=== PATIENT | female | born 1980 | race Hispanic/Latino ===

== ENCOUNTER 2018-04-24 10:58 | Inpatient (IN) | payer MEDICARE, OTHER ==
[~2018-04-24] VITALS: Ht 165.1 cm; Wt 74.8 kg
[~2018-04-24 10:58] MED LIST: CIPRO500 MG PO
[2018-04-24] MEDS ORDERED: IBUPROFEN 600 MG TAB PO STA ×2 (11:27→21:51)
[2018-04-24] MEDS ORDERED: SODIUM CHLORIDE 0.9% 1000ML 1,000 ML IV STA ×2 (11:27→14:17)
[2018-04-24 12:25] LABS: BASOPHILS % 0.3 % (0.0-1.0); EOSINOPHILS % 0.1 % (0.0-6.0); HEMATOCRIT 39.9 % (34.2-44.1); HEMOGLOBIN 12.7 g/dL (12.0-16.0); LYMPHOCYTES # (AUTO) 0.9 (1.0-3.2); LYMPHOCYTES % 7.7 % (18.0-39.1); MEAN CORPUSCULAR HEMOGLOBIN 25.6 pg (28-32); MEAN CORPUSCULAR HGB CONC 31.8 g/dL (31-35); MEAN CORPUSCULAR VOLUME 80.4 fL (81-99); MONOCYTES # (AUTO) 0.9 (0.2-0.8); MONOCYTES % 7.9 % (4.4-11.3); NEUTROPHILS # (AUTO) 9.6 (2.1-6.9); NEUTROPHILS % 83.4 % (38.7-80.0); PLATELET COUNT 270 x10e3/uL (140-360); RED BLOOD COUNT 4.96 x10e6/uL (3.6-5.1); RED CELL DISTRIBUTION WIDTH 15.4 % (11.7-14.4)
[2018-04-24 12:39] LABS: CLARITY,URINE TURBID (CLEAR); COLOR,URINE YELLOW (YELLOW)
[2018-04-24 12:40] LABS: LEUKOCYTE ESTERASE ,URINE 2+ (NEGATIVE); NITRITE,URINE POSITIVE (NEGATIVE); PROTEIN,URINE DIPSTICK 1+ (NEGATIVE)
[2018-04-24 12:41] LABS: BILIRUBIN,URINE NEGATIVE (NEGATIVE); KETONES,URINE NEGATIVE (NEGATIVE); URINE UROBILINOGEN 0.2 mg/dL (0.2 - 1)
[2018-04-24 12:42] LABS: BACTERIA,URINE MANY /HPF; EPITHELIAL CELLS,URINE MANY /LPF; WBC,URINE (MAN) >50 /HPF (0-5)
[2018-04-24 12:46] LABS: ALANINE AMINOTRANSFERASE 19 IU/L (0-55); ALBUMIN 3.3 g/dL (3.5-5.0); ALBUMIN/GLOBULIN RATIO 0.8 (0.8-2.0); ALKALINE PHOSPHATASE 126 IU/L (40-150); ANION GAP 10.7 mmol/L (8-16); BLOOD UREA NITROGEN 13 mg/dL (7-26); BUN/CREATININE RATIO 15 (6-25); CALCIUM 8.7 mg/dL (8.4-10.2); CARBON DIOXIDE 26 mmol/L (22-29); CHLORIDE 105 mmol/L (98-107); CREATININE, SERUM 0.86 mg/dL (0.57-1.11); EST GLOMERULAR FILTRATION RATE > 60 ML/MIN (60-); GLUCOSE 101 mg/dL (74-118); POTASSIUM 3.7 mmol/L (3.5-5.1); SODIUM 138 mmol/L (136-145)
[2018-04-24 12:56] LABS: INFLUENZAE A&B ANTIGEN (RAPID) NEGATIVE (NEGATIVE); STREPTOCOCCUS GRP A ANTIGEN NEGATIVE (NEGATIVE)
[2018-04-24] MEDS ORDERED: CEFTRIAXONE SOD 1 GM/NS 50 ML 50 ML IV ONE (13:00)
--- NOTE | 2018-04-24 14:32 | Diagnostic Imaging Report ---
EXAM: CHEST 2 VIEWS, PA and lateral DATE: 04/24/2018 Time stamp on exam: 12:17 PM INDICATION: Weakness COMPARISON: None FINDINGS: LINES/TUBES: None LUNGS: No consolidations or edema. PLEURA: No effusions or pneumothorax. HEART AND MEDIASTINUM: Normal size and contour. BONES AND SOFT TISSUES: No acute findings. Surgical clips are noted beneath the diaphragm. IMPRESSION: No acute thoracic abnormality. Signed by: Dr. Donald Crum DO on 04/24/2018 1:31 PM
--- OUTSIDE RECORDS SUMMARY | 2018-04-24 14:44 | XMS REPORT ---
Author [facility] Address Unknown Phone Unavailable Care Team Providers Care Supervisor Dried Yeast Name Role Phone Maya VELEZ Unavailable Unavailable Problems This patient has no known problems. Allergies, Adverse Reactions, Alerts This patient has no known allergies or adverse reactions. Medications This patient has no known medications. Results Test Description Test Time Test Comments Text Results Atomic Results Result Comments CHEST 2 VIEWS 2018-04-24 13:30:00 [place] [address] Patient Name: BEAR MCLAIN MR #: [id number] : 1980 Age/Sex: 37/F Req #: [id number] Adm Physician: Ordered by: TIFFANIE SERNA [employer] Report #: [id number] Location: ER Room/Bed: Procedure: [id number] DX/CHEST 2 VIEWS Exam Date: 04/24/18 Exam Time: 1220 REPORT STATUS: Signed EXAM: CHEST 2 VIEWS, PA and lateral DATE: 04/24/2018 Time stamp on exam: 12:17 PM INDICATION: Weakness COMPARISON: None FINDINGS: LINES/TUBES: None LUNGS: No consolidations or edema. PLEURA: No effusions or pneumothorax. HEART AND MEDIASTINUM: Normal size and contour. BONES AND SOFT TISSUES: No acute findings. Surgical clips are noted beneath the diaphragm. IMPRESSION: No acute thoracic abnormality. Signed by: Dr. Toribio Crum DO on 04/24/2018 1:31 PM Dictated By: TORIBIO CRUM DO 1331 Transcribed By: ERIN on 04/24/18 1331 COPY TO: TIFFANIE SERNA NP
[2018-04-24] MEDS: SODIUM CHLORIDE 0.9% 1000ML 1,000 ML IV SCH ×2 (15:30→19:32)
[2018-04-24 16:20] LABS: BILIRUBIN,URINE NEGATIVE (NEGATIVE); CLARITY,URINE HAZY (CLEAR); COLOR,URINE YELLOW (YELLOW); KETONES,URINE NEGATIVE (NEGATIVE); LEUKOCYTE ESTERASE ,URINE TRACE (NEGATIVE); NITRITE,URINE POSITIVE (NEGATIVE); PROTEIN,URINE DIPSTICK 1+ (NEGATIVE); URINE UROBILINOGEN 0.2 mg/dL (0.2 - 1)
[2018-04-24 16:32] LABS: BACTERIA,URINE MANY /HPF; EPITHELIAL CELLS,URINE FEW /LPF; TRANSITIONAL EPI CELLS,URINE MANY
--- NOTE | 2018-04-24 16:58 | Diagnostic Imaging Report ---
EXAM: CT Abdomen and Pelvis WITHOUT contrast INDICATION: Fever. Weakness. Upper back pain. May have UTI or stone. History of left kidney removed in 2002. COMPARISON: None. TECHNIQUE: Abdomen and pelvis were scanned utilizing a multidetector helical scanner from the lung base to the pubic symphysis without administration of IV contrast. Absence of intravenous contrast decreases sensitivity for detection of focal lesions and vascular pathology. Coronal and sagittal reformations were obtained. Routine protocol was performed. IV CONTRAST: None ORAL CONTRAST: Water COMPLICATIONS: None RADIATION DOSE: Total DLP: 618.70 mGy*cm Estimated effective dose: (DLP x 0.015 x size factor) mSv CTDIvol has been reviewed. It is below the limits set by the Radiation Protocol Committee (RPC). Dose modulation, iterative reconstruction, and/or weight based adjustment of the mA/kV was utilized to reduce the radiation dose to as low as reasonably achievable. FINDINGS: LINES and TUBES: None. LOWER THORAX: There is bibasilar atelectasis. HEPATOBILIARY: The liver is diffuse hypodense compared to the spleen, consistent with diffuse hepatic diffuse hepatic steatosis. No focal hepatic lesions. No biliary ductal dilation. GALLBLADDER: No radio-opaque stones or sludge. No wall thickening. SPLEEN: No splenomegaly. PANCREAS: No focal masses or ductal dilatation. ADRENALS: No adrenal nodules KIDNEYS/URETERS: Left nephrectomy. No focal mass in the left nephrectomy bed. However, there is a 3.3 x 4.8 cm indeterminate soft tissue density at the tail of the pancreas (series 3, image 45). Compensatory hypertrophy of the right kidney. Mild nonspecific perinephric fat stranding. Cystic lesions: 1. 2.2 cm lobulated cystic lesion in the superior posterior right kidney (series 3, 62). 2. 2.5 cm ill-defined hypodensity in the medial interpolar region of the right kidney (image 72). Stones: Numerous stones greater than 15 in the right kidney. Largest in the lower pole measures 0.6 cm. No hydronephrosis. GI TRACT: No abnormal distention, wall thickening, or evidence of bowel obstruction. Appendix is normal. PELVIC ORGANS/BLADDER: The uterus is absent. Bilateral ovaries are not well-visualized. LYMPH NODES: No lymphadenopathy. VESSELS: Unremarkable. PERITONEUM / RETROPERITONEUM: No free air or fluid. BONES: Unremarkable. SOFT TISSUES: Midline laparotomy scar and transverse Pfannenstiel incision. IMPRESSION: 1. Left nephrectomy. No focal mass in the nephrectomy bed. However, there is a 3.3 x 4.8 cm indeterminate soft tissue density at the tail of the pancreas. Recommend CT or MR abdomen without and with contrast liver mass protocol for further characterization. 2. Compensatory hypertrophy of the right kidney with a numerous nonobstructing right renal stones. Mild nonspecific perinephric fat stranding around the right kidney. Correlate with appropriate laboratory values. 3. Multiple nonspecific right renal hypodensities, possibly cysts. However, these were incompletely characterized secondary to lack of IV contrast. 4. Diffuse hepatic steatosis. Signed by: Dr. Johnathon Leyva M.D. on 04/24/2018 4:54 PM
[2018-04-24] MEDS ORDERED: KETOROLAC TROMETHAMINE 30 MG/ML VIAL IV ONE (19:00)
[2018-04-25] VITALS (8 sets, daily range): BP systolic 107–161; BP diastolic 78–90
--- NOTE | 2018-04-25 | NUR ---
Received patient from EVENING NURSE, patient is currently with temp. of 101.1 and pain of 4 at the back as per patient pain is from hard bed, patient given extra beddings on the bed and and received tylenol ordered by md. patient was stable and temperature reduced to 99.1 f, patient also received ativan for anxiety.
[2018-04-25] MEDS ORDERED: ACETAMINOPHEN 1000 MG/100 ML IV STA (00:06)
[2018-04-25] MEDS ORDERED: LORAZEPAM INJ 2 MG/ML VIAL IV ONE (00:15)
[2018-04-25] MEDS: SODIUM CHLORIDE 0.9% 1000ML 1,000 ML IV SCH ×3 (00:44→22:18)
--- NOTE | 2018-04-25 07:21 | NUR ---
Endorsed to next shift for continuity of care.
--- NOTE | 2018-04-25 10:13 | NUR ---
Patient assisted to bathroom, unable to void, on dialysis twice per week per patient, running Afib with tachycardia on exertion and attending notified, had metoprolol this morning. Addendum: 04/25/18 at 1016 by Brenda Baldwin RN WRONG CHART
--- NOTE | 2018-04-25 10:52 | NUR ---
Patient alert and responsive, no resp distress, denies any pains, afebrile this morning, Temp- 97.5, rest of VSS, OOB and ambulates to the bathroom, will monitor.
--- NOTE | 2018-04-25 12:44 | NUR ---
The pt. arrived to the unit via w/c from ER in stable condition. There is iv fluids but not connected to the pt. She reports no pain or discomfort at this time. There are no wounds and the pt. reports last b m 2 days ago. There are no home med to reconcile. She reports that she would like the flu and pneumonia vaccine. The pt. i resting quietly in bed post adm process completed.
--- NOTE | 2018-04-25 13:05 | NUR ---
Report given to nurse on the floor by charge nurse and patient has been transferred.
[2018-04-25] MEDS ORDERED: ACETAMINOPHEN 325 MG TAB PO PRN (14:15)
[2018-04-25] MEDS: CEFTRIAXONE SOD 1 GM/NS 50 ML 50 ML IV SCH (14:30)
--- NOTE | 2018-04-25 16:00 | NUR ---
The pt. c/o the iv abx burning post completion and dr was notified.
--- NOTE | 2018-04-25 16:30 | NUR ---
I spoke with Dr. Osborne and a midline was ordered. The pt. has been consented and is waiting for the midline and the Left EG infiltrated.
--- NOTE | 2018-04-25 22:17 | History and Physical ---
HISTORY OF PRESENT ILLNESS: The patient is a 37-year-old female, who has a past medical history positive for left nephrectomy due to a infection. The patient came here to the hospital complaining of fever and burning on urination. She was found to have UTI. She was found to have right-sided kidney stones. She was started on IV antibiotic and IV fluids. REVIEW OF SYSTEMS: CARDIOVASCULAR: No chest pain or palpitation. RESPIRATORY: No shortness of breath. No cough. GASTROINTESTINAL: No nausea or vomiting. No diarrhea. GENITOURINARY: No urinary frequency. No dysuria. ALLERGIES: NOT ALLERGIC TO ANY MEDICATION. SOCIAL HISTORY: She does not smoke. She does not drink. PAST MEDICAL HISTORY: Negative for any significant medical condition. PAST SURGICAL HISTORY: Positive for left nephrectomy. LABORATORY STUDIES: On BMP, sodium 138, potassium 3.7, chloride 105, CO2 of 26, BUN 13, creatinine 0.86, glucose 101. On CBC, white blood count 11,400, hemoglobin 12.7, hematocrit 39.9, and platelet count 270,000. AST 14, ALT 19, total bilirubin 0.6, alkaline phosphatase 126. IMPRESSION: 1. Urinary tract infection. 2. Right kidney stone. 3. Leukocytosis. 4. Anemia. 5. left nephrectomy. PLAN OF TREATMENT: Continue Rocephin 1 g IV once a day. Continue normal saline at 100 mL an hour, Zofran 4 mg IV q.4 hours as needed, Tylenol 650 mg q.4 hours as needed for pain or fever. We are waiting on the urine culture report, so far it is showing MD VENITA Nick/MODL /[id number]
--- NOTE | 2018-04-25 22:45 | NUR ---
patient c/o headache 11/29. tylenol given. placed call to Dr Osborne and notified patient still have fever. New order for pain med and blood culture
[2018-04-25 22:53] LABS: BASOPHILS % 0.2 % (0.0-1.0); EOSINOPHILS # (AUTO) 0.1 (0.0-0.4); EOSINOPHILS % 0.5 % (0.0-6.0); HEMATOCRIT 32.6 % (34.2-44.1); HEMOGLOBIN 10.3 g/dL (12.0-16.0); LYMPHOCYTES # (AUTO) 1.4 (1.0-3.2); LYMPHOCYTES % 12.4 % (18.0-39.1); MEAN CORPUSCULAR HEMOGLOBIN 25.6 pg (28-32); MEAN CORPUSCULAR HGB CONC 31.6 g/dL (31-35); MEAN CORPUSCULAR VOLUME 80.9 fL (81-99); MONOCYTES # (AUTO) 0.9 (0.2-0.8); MONOCYTES % 7.6 % (4.4-11.3); NEUTROPHILS # (AUTO) 8.8 (2.1-6.9); NEUTROPHILS % 78.9 % (38.7-80.0); PLATELET COUNT 241 x10e3/uL (140-360); RED BLOOD COUNT 4.03 x10e6/uL (3.6-5.1); RED CELL DISTRIBUTION WIDTH 15.4 % (11.7-14.4)
[2018-04-25] MEDS ORDERED: IOPAMIDOL 370 MG/ML 200 ML INFUS..BTL INJ ONE (23:41)
[2018-04-25] MEDS ORDERED: SODIUM CHLORIDE 0.9% 100 ML 100 ML ONE (23:41)
[2018-04-25] MEDS: ACETAMINOPHEN 1000 MG/100 ML IV PRN (23:44)
[2018-04-25] MEDS: ONDANSETRON HCL INJ 2MG/ML 2ML 2 MG/ML VIAL IV PRN (23:44)
[2018-04-26] VITALS (7 sets, daily range): BP systolic 105–147; BP diastolic 63–86
--- NOTE | 2018-04-26 03:17 | Diagnostic Imaging Report ---
EXAM: CT Abdomen WITHOUT and WITH contrast INDICATION: Abnormal CT. Evaluate for pancreatic mass. COMPARISON: CT abdomen and pelvis 04/24/2018 TECHNIQUE: Abdomen was scanned utilizing a multidetector helical scanner from the lung base to the iliac crest before and after administration of IV contrast. Coronal and sagittal reformations were obtained. Pancreas mass protocol was performed. Scan was performed during pre- through the liver, arterial phase through the liver and venous phase through the abdomen. IV CONTRAST: 100 mL of Isovue-370 ORAL CONTRAST: Water COMPLICATIONS: None RADIATION DOSE: Total DLP: 1258.2 mGy*cm Estimated effective dose: (DLP x 0.015 x size factor) mSv Dose modulation, iterative reconstruction, and/or weight based adjustment of the mA/kV was utilized to reduce the radiation dose to as low as reasonably achievable. FINDINGS: LINES and TUBES: None. LOWER THORAX: Unremarkable HEPATOBILIARY: Hepatic steatosis. No focal hepatic lesions. No biliary ductal dilation. GALLBLADDER: No radio-opaque stones or sludge. No wall thickening. SPLEEN: No splenomegaly. PANCREAS: Previously noted 3.2 x 4.8 cm soft tissue density in the region of the pancreatic tail appears similar in attenuation to the remaining pancreas before contrast and after contrast administration during arterial, venous, and delayed phases, likely representing displaced normal pancreatic parenchyma related to left nephrectomy. No focal masses or ductal dilatation. ADRENALS: No adrenal nodules KIDNEYS/URETERS: Left nephrectomy with compensatory hypertrophy of the right kidney. Heterogeneous enhancement and perinephric stranding of the right kidney. A 3.3 cm round heterogeneously enhancing lesion is noted in the posterior interpolar region (delayed phase series 5 image 38). Lobulated 2.5 cm calyceal diverticulum in the superior pole contains a punctate dependent stone and is seen filling with excreted contrast on the delayed phase. Additional smaller calyceal diverticula measure 1.4 cm and 1.7 cm in the inferior pole, both of which also contain stones. Numerous nonobstructing right renal stones measuring up to 0.6 cm. GI TRACT: No abnormal distention, wall thickening, or evidence of bowel obstruction. LYMPH NODES: Borderline enlarged retrocaval 1 cm node. VESSELS: Unremarkable. PERITONEUM / RETROPERITONEUM: No free air or fluid. BONES: Unremarkable. SOFT TISSUES: Midline laparotomy scar. IMPRESSION: 1. No pancreatic masses. Previously noted soft tissue density in the region of the pancreatic tail appears to represent displaced pancreas related to left nephrectomy. 2. Right pyelonephritis with focal 3.3 cm round heterogeneously enhancing area which may represent focal pyelonephritis. Recommend follow-up ultrasound after therapy to document resolution and exclude neoplasm. 3. Multiple nonobstructing right renal stones. Multiple calyceal diverticula also containing stones. 4. Hepatic steatosis. Signed by: DR. Parmjit Rogers MD on 04/26/2018 3:14 AM
[2018-04-26] MEDS: SODIUM CHLORIDE 0.9% 1000ML 1,000 ML IV SCH ×3 (05:08→23:10)
--- NOTE | 2018-04-26 09:03 | NUR ---
The pt. is currently off the unit for mrcp and Dr.' Crandall and Sravan visited. The plan for tomorrow is cysto and other indicated procedures. The pt. was instructed to maintain N P O status after midnight by the
--- NOTE | 2018-04-26 10:10 | NUR ---
The pt. has returned to the unit and wants to shower prior to reconnecting the iv fluids.
[2018-04-26] MEDS ORDERED: INFLUENZA VIRUS VAC SPLIT INJ 0.5 ML SYR IM NR (13:30)
[2018-04-26] MEDS: CEFTRIAXONE SOD 1 GM/NS 50 ML 50 ML IV SCH ×2 (14:11→14:30)
--- NOTE | 2018-04-26 15:29 | NUR ---
The pt. has received the flu vaccine and provided a copy of the information for her records. She has also been consented for cysto retrogrades and other indicated procedures for 04/27/18.
--- NOTE | 2018-04-26 17:41 | Progress Note ---
DATE: 04/26/2018 Internal Medicine Progress Note SUBJECTIVE: She is doing well today. PHYSICAL EXAMINATION: VITAL SIGNS: Blood pressure 135/86, temperature 36.8, heart rate 92 per minute, respiratory rate 16 per minute, and oxygen saturation 98%. HEART: Regular rhythm. No murmur or added sounds. LUNGS: Clear bilaterally. ABDOMEN: Soft, nontender. No distention. No visceromegaly. FINAL IMPRESSION: 1. Urinary tract infection. 2. Kidney stones. 3. Mild anemia. PLAN OF TREATMENT: Continue ceftriaxone 2 g IV once a day, normal saline 100 mL an hour, Zofran 4 mg q.4 hours as needed, Tylenol 625 mg q.4 hours as needed, and Tylenol 1000 mg q.[address] Crandall will plan to do a cystoscopy with retrograde on Monday which is tomorrow, however, 24-urine culture to come back. Dr. Hinson will be covering for me starting tomorrow at 7:00 a.m. until discharge. MD VENITA Nick/FELISHA /[id number]
--- NOTE | 2018-04-26 19:36 | Consultation ---
DATE OF CONSULTATION: 04/26/2018 INFECTIOUS DISEASE CONSULTATION REASON FOR CONSULTATION: Urinary tract infection. Thank you Dr. Osborne for asking me to see this patient. HISTORY OF PRESENT ILLNESS: The patient is a 37-year-old woman referred for urinary tract infection. She presented to emergency department on 04/24/2018 with fever, chills, headache, and generalized weakness. She denies sick contact and sore throat. In the emergency department, she was noted to have fever to 102.2 degrees Fahrenheit, pulse rate 115, respiratory rate 18, blood pressure 155/99, and oxygen saturation 99% on room air. Initial laboratory studies showed blood leukocyte count of 11,450 with 83.4% neutrophils, abnormal urinalysis, and negative influenza antigen test. Chest x- ray showed no acute abnormality, but noncontrast CT scan of the abdomen and pelvis showed left nephrectomy, compensatory hypertrophy of the right kidney, numerous nonobstructing right renal stones, indeterminate soft tissue density in the tail of the pancreas, and diffuse steatosis. PAST MEDICAL HISTORY: None. 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 ALLERGIES: NO KNOWN DRUG ALLERGIES. MEDICATIONS: See MAR. The current antibiotic is ceftriaxone 1 g IV piggyback q.24 hours. IMMUNIZATIONS: She has not received influenza vaccination. FAMILY HISTORY: Noncontributory. SOCIAL HISTORY: No alcohol, tobacco, or recreational drug use. REVIEW OF SYSTEMS: As per history of present illness. The fever and headache appear to subside. The patient denies sore throat, cough, shortness of breath, nausea, vomiting, diarrhea, and abdominal pain. PHYSICAL EXAMINATION: GENERAL: No acute distress and does not appear toxic. VITAL SIGNS: T-max 101.4, pulse rate 88, respiratory rate 16, and blood pressure 127/77. Weight 165 pounds. HEENT: Normocephalic. There is no icterus or injection of the conjunctivae. There is no ear or nasal discharge. Moist oral mucosa with missing lower incisor teeth. No pharyngeal erythema or exudate. NECK: Supple. No lymphadenopathy. LUNGS: Good air entry bilaterally. HEART: Normal S1 and S2. Regular. ABDOMEN: Soft and nontender. There is no costovertebral angle tenderness. EXTREMITIES: There is no edema, clubbing, or cyanosis. SKIN: There is no acute erythema. TALENT SOURCER: Awake, alert, and oriented to person, place, and time. Nonfocal. LABORATORY AND DIAGNOSTICS: 04/25/2018 WBC 11,120, hemoglobin 10.3, platelets 241,000, neutrophils 78.9, lymphocytes 12.4, monocytes 7.6, eosinophils 0.5, and basophils 0.2. 04/24/2018 BUN 13, creatinine 0.86, AST 14, ALT 19, alk phos 129, and total bilirubin 0.6. Group A Streptococcus antigen test is negative. Throat culture grew usual respiratory leann. Urine culture grew E coli. 04/26/2018 blood culture is pending. IMPRESSION: 1. Resolving urinary tract infection with sepsis due to E. coli, present on admission. 2. Nephrolithiasis. PLAN: 1. Await blood culture result (although it was collected close to 48 hours after administration of antibiotics), and MRCP report. 2. Continue current antibiotic. Administer influenza vaccination (the patient agrees). MD CORBY Andrade/FELISHA /[id number] MTDD
[2018-04-26] MEDS: ACETAMINOPHEN 1000 MG/100 ML IV PRN (23:45)
[2018-04-27] VITALS (7 sets, daily range): BP systolic 112–144; BP diastolic 44–88
[2018-04-27] MEDS: SODIUM CHLORIDE 0.9% 1000ML 1,000 ML IV SCH ×2 (00:48→11:16)
[2018-04-27 06:20] LABS: ANION GAP 9.7 mmol/L (8-16); BLOOD UREA NITROGEN 5 mg/dL (7-26); BUN/CREATININE RATIO 8 (6-25); CARBON DIOXIDE 21 mmol/L (22-29); CHLORIDE 110 mmol/L (98-107); CREATININE, SERUM 0.61 mg/dL (0.57-1.11); EST GLOMERULAR FILTRATION RATE > 60 ML/MIN (60-); GLUCOSE 82 mg/dL (74-118); POTASSIUM 3.7 mmol/L (3.5-5.1); SODIUM 137 mmol/L (136-145)
--- NOTE | 2018-04-27 08:37 | Diagnostic Imaging Report ---
MRCP CPT code: 99168 History: Pancreas mass, history of left nephrectomy Comparison: CTs abdomen/pelvis 04/24/2018 and 04/26/2018. Technique: Multiplanar, multisequence images of the abdomen were obtained per MRCP protocol. 3D volume rendered reformation images of the biliary tree were performed. No intravenous gadolinium was administered. Findings: No dilatation of the intrahepatic ducts. Cystic duct is normal in morphology. Common bile duct measures 3 to 4 mm in maximum diameter and tapers as it approaches the ampulla. No intraluminal filling defects. The pancreas duct is not dilated. Gallbladder: Present. No stones, gallbladder wall thickening, or sludge. Liver: Loss in signal on opposed phase sequence consistent with steatosis. Hepatic fat percentage is 18.5%. Spleen: Normal size and signal. No mass. Pancreas: Bulbous configuration of the pancreas tail in the posterior left upper quadrant, similar to CT. There is uniform T1 and T2 signal. No evidence of mass in the parenchyma. Kidneys: The left kidney is absent without mass in the nephrectomy bed. The right kidney contains a calyceal diverticulum 3.1 cm in largest dimension. A cystic structure in the medial interpolar region measuring 2.8 x 2.6 cm with a peripheral rim of decreased T2 signal (series 7, image 33). By CT, this was felt to represent pyelonephritis. A calyceal diverticulum in the anterior lower pole measures 1.5 cm with tiny round foci within suggestive of calculi. A calyceal diverticulum in the lateral interpolar region measures 1.2 cm in largest dimension. No hydronephrosis. There is mild perinephric inflammation. Adrenal glands: No mass Lymph nodes: Right periaortic lymph nodes measure up to 1.5 cm. Bowel: Stomach and visualized portions of the small bowel and large bowel are normal in diameter with normal wall thickness. Peritoneum/retroperitoneum: No free fluid or fluid collection. Pelvic organs: Visualized portion of the bladder is well-distended. Lung bases: Clear. Bones: Normal marrow signal. No focal osseous lesions. Soft tissues: Round focus of blooming artifact in the anterior left upper quadrant subcutaneous fat could represent the sequela of surgery or injection. There is no CT correlate. There is focal blooming artifact in the posterior left upper quadrant from nephrectomy. There is a midline laparotomy scar. No evidence of hernia. IMPRESSION: 1. No evidence of biliary ductal dilatation or pancreas ductal dilatation. Normal gallbladder. 2. No evidence of pancreas mass. Bulbous configuration of the pancreas tail in the posterior left upper quadrant is likely due to folded parenchyma status post nephrectomy. 3. Multiple calyceal diverticula in the right kidney. Cystic mass with low T2 signal rim may represent a renal abscess. Close interval follow-up is recommended. Prominent right perinephric lymph nodes are likely reactive. 4. Moderate steatosis. Thank you for your referral. Signed by: Dr. Cesar Rutledge MD on 04/27/2018 8:34 AM
--- NOTE | 2018-04-27 13:20 | Progress Note ---
DATE: 04/27/2018 I am covering for Dr. Osborne. SUBJECTIVE: Ms. Ramos is a 37-year-old female with history of left nephrectomy, came to the emergency room complaining of burning urination and fever. She was found to have a urinary tract infection and right-sided kidney stones. She was started on IV fluids and IV antibiotics. Infectious Disease and Urology were consulted. She is going to go for a stent placement today. OBJECTIVE: GENERAL: She is awake and alert. VITAL SIGNS: Temperature is 97.5 and blood pressure 131/44. HEART: Regular rate. LUNGS: Clear to auscultation. ABDOMEN: Soft. LABORATORY DATA: White count is 11.12, hemoglobin is 10.3, and hematocrit 32.6. Influenza negative. Group B strep negative. Potassium 3.7, creatinine is 0.61, glucose is 82. Urine shows nitrites and 11 to 20 white blood cells. Urine showing E coli that is resistant to Cipro, Bactrim, and ampicillin. Abdominal CT shows no pancreatic masses, right pyelonephritis with effacing area that may represent focal pyelonephritis, multiple nonobstructing right renal stones, and hepatic steatosis. ASSESSMENT: 1. Urinary tract infection with Escherichia coli. 2. Right-sided nephrolithiasis. 3. Anemia. 4. Leukocytosis. 5. History of left nephrectomy. PLAN: At present time is to continue IV antibiotics. Continue Zofran. The patient is going to go for cystoscopy and probably stent placement today. MD AMANDA Weiss/MODL /[id number]
[2018-04-27] MEDS ORDERED: CEFTRIAXONE SOD 1 GM/NS 50 ML 50 ML IV SCH (14:00)
[2018-04-27] MEDS ORDERED: ONDANSETRON HCL INJ 2MG/ML 2ML 2 MG/ML VIAL ONE (14:01)
[2018-04-27] MEDS ORDERED: LIDOCAINE HCL 2% LOCAL INJ 5 ML SDV VIAL INJ ONE (14:01)
[2018-04-27] MEDS ORDERED: DEXAMETHASONE SOD PHOS INJ 4 MG/ML VIAL ONE (14:01)
[2018-04-27] MEDS ORDERED: PROPOFOL IV EMULSION 10 MG/ML 20 ML VIAL ONE (14:01)
[2018-04-27] MEDS ORDERED: SEVOFLURANE INHAL SOLN 250 ML PEN BTL ONE (14:01)
[2018-04-27] MEDS ORDERED: MIDAZOLAM HCL 2 MG/2 ML VIAL ONE (14:53)
[2018-04-27] MEDS ORDERED: FENTANYL CITRATE/PF 100MCG/2 ML INJ ONE (14:53)
[2018-04-27] MEDS ORDERED: IOPAMIDOL 610MG/1ML 300 MG/ML VIAL IV ONE (15:50)
[2018-04-27] MEDS ORDERED: BELLADONNA/OPIUM 30 MG SUPP RC ONE (15:50)
--- NOTE | 2018-04-27 19:25 | NUR ---
Patient received sitting up in bed. Family at bedside. AAO x 3. Patient had no complaints of pain. IVF infusing at 100 cc /hr. Fall precautions in place. Patient instructed to call for assistance when needed. Call light within reach.
[2018-04-27] MEDS: ONDANSETRON HCL INJ 2MG/ML 2ML 2 MG/ML VIAL IV PRN (21:03)
[2018-04-28 00:11] VITALS: BP 128/81
--- NOTE | 2018-04-28 01:51 | NUR ---
Patient complained of pain and burning upon urination. Dr. Kyle Crandall notified. New orders received.
[2018-04-28] MEDS ORDERED: PHENAZOPYRIDINE HCL 100 MG TAB PO PRN (02:00)
[2018-04-28 04:00] VITALS: BP 137/76
[2018-04-28 06:11] LABS: BASOPHILS % 0.2 % (0.0-1.0); HEMATOCRIT 33.4 % (34.2-44.1); HEMOGLOBIN 10.7 g/dL (12.0-16.0); LYMPHOCYTES # (AUTO) 0.7 (1.0-3.2); LYMPHOCYTES % 8.8 % (18.0-39.1); MEAN CORPUSCULAR HEMOGLOBIN 25.7 pg (28-32); MEAN CORPUSCULAR VOLUME 80.1 fL (81-99); MONOCYTES # (AUTO) 0.4 (0.2-0.8); MONOCYTES % 4.5 % (4.4-11.3); NEUTROPHILS # (AUTO) 7.2 (2.1-6.9); NEUTROPHILS % 85.9 % (38.7-80.0); PLATELET COUNT 342 x10e3/uL (140-360); RED BLOOD COUNT 4.17 x10e6/uL (3.6-5.1); RED CELL DISTRIBUTION WIDTH 14.9 % (11.7-14.4)
[2018-04-28 06:51] LABS: BLOOD UREA NITROGEN 7 mg/dL (7-26); BUN/CREATININE RATIO 10 (6-25); CALCIUM 8.9 mg/dL (8.4-10.2); CARBON DIOXIDE 22 mmol/L (22-29); CHLORIDE 108 mmol/L (98-107); CREATININE, SERUM 0.67 mg/dL (0.57-1.11); EST GLOMERULAR FILTRATION RATE > 60 ML/MIN (60-); GLUCOSE 134 mg/dL (74-118); SODIUM 136 mmol/L (136-145)
[2018-04-28 08:10] VITALS: BP 139/79
[2018-04-28] MEDS: SODIUM CHLORIDE 0.9% 1000ML 1,000 ML IV SCH (08:31)
[2018-04-28 08:39] VITALS: BP 139/79
[2018-04-28] MEDS ORDERED: OXYBUTYNIN CHLORIDE 5 MG TAB PO SCH (09:00)
[2018-04-28 12:16] VITALS: BP 123/73
--- NOTE | 2018-06-20 07:17 | Operative Report ---
DATE OF PROCEDURE: 04/27/2018 SURGEON: Jorge Crandall MD PREOPERATIVE DIAGNOSES: 1. Right nephrolithiasis. 2. Urinary tract infection. 3. Microhematuria. POSTOPERATIVE DIAGNOSES: 1. Right nephrolithiasis. 2. Urinary tract infection. 3. Microhematuria. 4. Grade 2 rectocele. 5. Urethral hypermobility. OPERATION PERFORMED: 1. Cystourethroscopy with bilateral ureteral catheterization and retrograde ureteropyelography (separate procedure performed for the urinary tract infections and microhematuria). 2. Interpretation of retrograde ureteropyelography. 3. Supervision of fluoroscopy, no radiologist present. 4. Cystourethroscopy with insertion of right indwelling ureteral stent (separate procedure performed for the right nephrolithiasis solitary kidney and the need for additional procedures). 5. Pelvic examination under anesthesia. ANESTHESIA: General. COMPLICATIONS: None. CLINICAL SUMMARY: Gabi Ramos is a 37-year-old woman with an absent left kidney, status post left nephrectomy remotely. The patient has recurrent urolithiasis in the right kidney. She has been treated for urinary tract infection and pyelonephritis. She has failed to follow up. She is brought to the operating room for the above procedure. She is aware of the risks of bleeding, infection, injury to adjacent structures, need for additional procedures such as ESWL, she elected to proceed. OPERATIVE PROCEDURE IN DETAIL: Informed consent was verified. Gbai Ramos was properly identified, taken to the operating room, placed on the cystoscopy table in supine position. Anesthesia was uneventfully begun. The patient was then carefully and gently repositioned in dorsal lithotomy position. All pressure points were padded. Her genitalia were prepared and draped in usual sterile fashion. The cystoscope sheath was inserted in the patient's urethra with an obturator in place and the bladder was drained. Panendoscopy revealed signs of acute cystitis with multiple erythematous circular lesions consistent with active urinary tract infection. The patient's infection has been treated, but she has yet to heal from this insult. A ureteral catheter was used to cannulate each ureter and retrograde ureteropyelogram was performed. With cystoscopic and fluoroscopic guidance, a right-sided indwelling ureteral stent was then placed. It was coiled in the patient's kidney as well as the patient's bladder. The retaining suture was cut short. Interpretation of retrograde ureteropyelography: Contrast was instilled in a retrograde fashion bilaterally. The left ureter was unremarkable without any tumors or filling defects. There were hemoclips noted where the ureter was divided. On the right hand side, there was no hydroureteronephrosis, but there was definite stone that we noted. The collecting system appeared but the stent was in good position, coiled the patient's kidneys as well as the patient's bladder at the end of the case. The patient's bladder was drained and the cystoscope was withdrawn. Pelvic examination revealed a grade 2 rectocele and urethral hypermobility. No abnormal palpable pelvic masses could be appreciated. There were no obvious mucosal lesions. The patient was then uneventfully reversed from anesthesia and taken to the recovery room in stable condition. There were no complications to the procedure. She tolerated the procedure well. Explicit postop instructions were given for the patient up in the office. We will follow the patient up as an outpatient for a right ESWL. MD ELLA Brink/FELISHA /[id number]
== END 2018-04-28 13:58 | disposition home or self-care (01) | DRG 690 ==
LOC: ER 10:58 → ERHOLD 14:41 → OBSVTOIN 04-25 11:07 → MED/SURG2 04-25 12:54
PROVIDERS: ADMIT Internal Medicine; ATTEND Internal Medicine
PROC: 05H933Z Insertion of Infusion Device into Right Brachial Vein, Percutaneous Approach (ICD-10-PCS; principal; 2018-04-24)
PROC: BT141ZZ Fluoroscopy of Kidneys, Ureters and Bladder using Low Osmolar Contrast (ICD-10-PCS; 2018-04-25)
PROC: 0T9680Z Drainage of Right Ureter with Drainage Device, Via Natural or Artificial Opening Endoscopic (ICD-10-PCS; 2018-04-25)
PROC: 3E02340 Introduction of Influenza Vaccine into Muscle, Percutaneous Approach (ICD-10-PCS; 2018-04-26)
DX: N39.0 Urinary tract infection, site not specified (principal); N20.0 Calculus of kidney; B96.20 Unspecified Escherichia coli [E. coli] as the cause of diseases classified elsewhere; N36.41 Hypermobility of urethra; N81.6 Rectocele; D64.9 Anemia, unspecified; Z90.5 Acquired absence of kidney; Z23 Encounter for immunization
CPT/HCPCS: 36415; 71046; 74170; 74176; 74181; 74420; 74470; 80048; 80053; 81001; 81025; 83518; 83970; 84550; 85025; 86301; 87040; 87070; 87086; 87186; 87400; 99284; C2617; G0378; J0696; J1100; J1885; J2001; J2060; J2250; J2405; J7030; Q9967

== ENCOUNTER 2022-01-02 18:22 | Emergency (ER) | payer SELFPAY ==
[~2022-01-02] VITALS: Ht 165.1 cm; Wt 74.8 kg
[2022-01-02] MEDS ORDERED: SODIUM CHLORIDE 0.9% 1000ML 1,000 ML IV ONE ×2 (18:45→19:45)
[2022-01-02] MEDS ORDERED: IBUPROFEN 400 MG TAB PO STA (18:45)
[2022-01-02 19:04] LABS: BASOPHILS % 0.2 % (0.0-1.0); EOSINOPHILS % 0.1 % (0.0-6.0); HEMATOCRIT 43.9 % (34.2-44.1); LYMPHOCYTES # (AUTO) 1.4 (1.0-3.2); LYMPHOCYTES % 8.3 % (18.0-39.1); MEAN CORPUSCULAR HEMOGLOBIN 28.9 pg (28-32); MEAN CORPUSCULAR HGB CONC 31.9 g/dL (31-35); MEAN CORPUSCULAR VOLUME 90.5 fL (81-99); MONOCYTES # (AUTO) 1.3 (0.2-0.8); MONOCYTES % 7.7 % (4.4-11.3); NEUTROPHILS # (AUTO) 13.9 (2.1-6.9); NEUTROPHILS % 83.2 % (38.7-80.0); PLATELET COUNT 296 x10e3/uL (140-360); RED BLOOD COUNT 4.85 x10e6/uL (3.6-5.1)
[2022-01-02] MEDS ORDERED: IBUPROFEN 400 MG TAB ONE (19:13)
[2022-01-02 19:18] LABS: INR 1.03; PROTHROMBIN TIME 14.4 seconds (11.9-14.5)
[2022-01-02 19:19] LABS: PARTIAL THROMBOPLASTIN TIME 28.1 seconds (23.8-35.5)
[2022-01-02 19:23] LABS: ALANINE AMINOTRANSFERASE 27 IU/L (0-55); ALBUMIN 3.3 g/dL (3.5-5.0); ALBUMIN/GLOBULIN RATIO 0.7 (0.8-2.0); ALKALINE PHOSPHATASE 96 IU/L (40-150); ANION GAP 17.4 mmol/L (8-16); BLOOD UREA NITROGEN 17 mg/dL (7-26); BUN/CREATININE RATIO 17 (6-25); CALCIUM 9.6 mg/dL (8.4-10.2); CARBON DIOXIDE 26 mmol/L (22-29); CHLORIDE 101 mmol/L (98-107); CREATININE, SERUM 1.01 mg/dL (0.57-1.11); GLUCOSE 104 mg/dL (74-118); POTASSIUM 4.4 mmol/L (3.5-5.1); SODIUM 140 mmol/L (136-145)
[2022-01-02 19:59] LABS: CLARITY,URINE SL CLOUDY (CLEAR); COLOR,URINE YELLOW (YELLOW); KETONES,URINE 2+ (NEGATIVE); LEUKOCYTE ESTERASE ,URINE SMALL (NEGATIVE); NITRITE,URINE POSITIVE (NEGATIVE); PROTEIN,URINE DIPSTICK 2+ (NEGATIVE); URINE UROBILINOGEN 1 mg/dL (0.2 - 1)
[2022-01-02 20:14] LABS: BACTERIA,URINE MANY /HPF; EPITHELIAL CELLS,URINE MANY /LPF; RBC,URINE 0-5 /HPF (0-5); WBC,URINE (MAN) >50 /HPF (0-5)
[2022-01-02] MEDS ORDERED: CEPHALEXIN500 MG PO (20:33)
[2022-01-02] MEDS ORDERED: ONDANSETRON ODT4 MG PO (20:40)
[2022-01-02] MEDS ORDERED: ACETAMINOPHEN 325 MG TAB PO ONE (20:45)
[2022-01-02] MEDS ORDERED: CEFTRIAXONE 1 GM VIAL ONE (20:45)
[2022-01-02 20:48] VITALS: BP 133/93
[2022-01-02] MEDS ORDERED: ACETAMINOPHEN 325 MG TAB ONE (20:53)
== END 2022-01-02 20:58 | disposition home or self-care (01) ==
LOC: ER 18:33
DX: R50.9 Fever, unspecified (principal); N39.0 Urinary tract infection, site not specified; D72.829 Elevated white blood cell count, unspecified; R11.2 Nausea with vomiting, unspecified; R51.9 Headache, unspecified; Z20.822 Contact with and (suspected) exposure to COVID-19
CPT/HCPCS: 36415; 71046; 80053; 81001; 83605; 84702; 85025; 85610; 85730; 87040; 87400; 99284; J0696; J7030; U0002

== ENCOUNTER 2023-12-20 06:52 | Emergency (ER) | payer SELFPAY ==
[~2023-12-20] VITALS: Ht 165.1 cm; Wt 77.1 kg
[~2023-12-20 06:52] MED LIST changes: +CEPHALEXIN500 MG PO; +ONDANSETRON ODT4 MG PO
[2023-12-20 08:57] LABS: INFLUENZAE A&B ANTIGEN (RAPID) NEGATIVE (NEGATIVE)
[2023-12-20 08:58] LABS: RESPIRATORY SYNC. VIRUS NEGATIVE (NEGATIVE)
[2023-12-20 09:00] VITALS: TEMP 98.4
[2023-12-20 09:08] LABS: BASOPHILS % 0.2 % (0.0-1.0); EOSINOPHILS # (AUTO) 0.1 (0.0-0.4); EOSINOPHILS % 0.7 % (0.0-6.0); HEMATOCRIT 42.4 % (34.2-44.1); HEMOGLOBIN 13.7 g/dL (12.0-16.0); LYMPHOCYTES # (AUTO) 0.9 (1.0-3.2); LYMPHOCYTES % 10.3 % (18.0-39.1); MEAN CORPUSCULAR HEMOGLOBIN 29.5 pg (28-32); MEAN CORPUSCULAR HGB CONC 32.3 g/dL (31-35); MEAN CORPUSCULAR VOLUME 91.2 fL (81-99); MONOCYTES # (AUTO) 0.6 (0.2-0.8); MONOCYTES % 6.5 % (4.4-11.3); NEUTROPHILS # (AUTO) 7.2 (2.1-6.9); NEUTROPHILS % 82.1 % (38.7-80.0); PLATELET COUNT 295 x10e3/uL (140-360); RED BLOOD COUNT 4.65 x10e6/uL (3.6-5.1); RED CELL DISTRIBUTION WIDTH 13.1 % (11.7-14.4)
[2023-12-20 09:34] LABS: ALBUMIN 3.4 g/dL (3.5-5.0); ALBUMIN/GLOBULIN RATIO 0.7 (0.8-2.0); BILIRUBIN,TOTAL 0.5 mg/dL (0.2-1.2); CALCIUM 9.6 mg/dL (8.4-10.2); CREATININE, SERUM 0.94 mg/dL (0.57-1.11); TOTAL PROTEIN 8.3 g/dL (6.5-8.1)
[2023-12-20 10:15] VITALS: PULSE 106; RESP 18; O2SAT 95
[2023-12-20] MEDS ORDERED: AMOX TR-K CLV1 EAC2 PO (10:19)
[2023-12-20] MEDS ORDERED: DOXYCYCLINE HY100 MG PO (10:19)
[2023-12-20] MEDS ORDERED: MUCINEX DM ER1 EACH PO (10:19)
== END 2023-12-20 10:44 | disposition home or self-care (01) ==
LOC: ER 06:58
DX: R50.9 Fever, unspecified (principal); J18.9 Pneumonia, unspecified organism; R05.9 Cough, unspecified; Z11.52 Encounter for screening for COVID-19
CPT/HCPCS: 0223U; 36415; 71045; 80053; 85025; 87400; 87420; 99284

== ENCOUNTER 2024-07-02 12:41 | Emergency (ER) | payer SELFPAY ==
[~2024-07-02] VITALS: Ht 165.1 cm; Wt 77.1 kg
[~2024-07-02 12:41] MED LIST changes: +AMOX TR-K CLV1 EAC2 PO; +DOXYCYCLINE HY100 MG PO; +MUCINEX DM ER1 EACH PO
[2024-07-02] MEDS ORDERED: IBUPROFEN 600 MG TAB ONE (13:15)
[2024-07-02] MEDS: IBUPROFEN 600 MG TAB PO STA (13:17)
[2024-07-02 14:25] VITALS: PULSE 91; RESP 17; TEMP 99.1; O2SAT 100
== END 2024-07-02 14:30 | disposition home or self-care (01) ==
LOC: ER 13:07
DX: R50.9 Fever, unspecified (principal); R53.81 Other malaise
CPT/HCPCS: 99282